=== PATIENT | female | born 1990 | race Caucasian/White ===

== ENCOUNTER 2024-12-18 10:28 | Emergency (ER) | payer SELFPAY ==
[2024-12-18 11:30] LABS: APPEARANCE,URINE CLEAR; GLUCOSE,URINE NEGATIVE (NEGATIVE); OCCULT BLOOD,URINE MODERATE (NEGATIVE)
[2024-12-18 12:01] LABS: EPITHELIAL CELLS,URINE FEW (NONE-FEW)
== END 2024-12-18 12:37 | disposition home or self-care (01) ==
LOC: MW.ED 10:28
DX: O23.41 Unspecified infection of urinary tract in pregnancy, first trimester (principal); N39.0 Urinary tract infection, site not specified; O21.9 Vomiting of pregnancy, unspecified; Z79.899 Other long term (current) drug therapy; Z75.3 Unavailability and inaccessibility of health-care facilities; Z3A.12 12 weeks gestation of pregnancy
CPT/HCPCS: 81001; 99283